=== PATIENT | female | born 1990 | race Hispanic/Latino ===

== ENCOUNTER 2018-12-06 19:42 | Emergency (ER) | payer MEDICAID ==
[2018-12-06] MEDS ORDERED: CEFTRIAXONE SODIUM 1 GM ONE ×2 (20:23→20:35)
[2018-12-06] MEDS ORDERED: DEXAMETHASONE SOD PHOSPHATE 10MG/ML 1ML VIAL ONE (20:23)
[2018-12-06] MEDS ORDERED: LIDOCAINE HCL-MPF 1% 2ML VIAL ONE ×2 (20:23→20:35)
== END 2018-12-06 20:55 | disposition home or self-care (01) ==
LOC: EDH 19:42
DX: J03.00 Acute streptococcal tonsillitis, unspecified (principal)
CPT/HCPCS: 81025; 96372 ×2; 99284; J0696 ×2; J1100; J3490 ×2

== ENCOUNTER 2020-10-08 19:39 | Emergency (ER) | payer MEDICAID ==
[2020-10-08] MEDS ORDERED: KETOROLAC 60 MG VIAL (30MG/ML) ONE (20:09)
[2020-10-08] MEDS ORDERED: DIAZEPAM 5 MG TABLET ONE (20:09)
[2020-10-08] MEDS ORDERED: HYDROCODONE/ACETAMINOPHEN 10/325 MG TAB ONE (20:09)
== END 2020-10-08 20:52 | disposition home or self-care (01) ==
LOC: EDH 19:39
DX: M54.5 Low back pain (principal); F31.9 Bipolar disorder, unspecified; F41.9 Anxiety disorder, unspecified
CPT/HCPCS: 96372; 99283; J1885

== ENCOUNTER 2021-06-22 11:57 | Emergency (ER) | payer MEDICAID ==
[~2021-06-22] VITALS: Ht 152.4 cm; Wt 95.3 kg
[2021-06-22] MEDS ORDERED: D-ME118S47 PO (12:40)
[2021-06-22] MEDS ORDERED: IBUP-2070 PO (12:40)
[2021-06-22] MEDS ORDERED: METH4TAB3 PO (12:40)
[2021-06-22 13:00] VITALS: BP 128/74
== END 2021-06-22 13:15 | disposition home or self-care (01) ==
LOC: EDH 11:57
DX: U07.1 COVID-19 (principal)
CPT/HCPCS: 87635; 87804 ×2; 99283; C9803